=== PATIENT | male | born 1965 | race Caucasian/White ===

== ENCOUNTER → 2016-11-21 | Outpatient (REF) | payer OTHER, MEDICAID ==
[2016-11-21 12:36] LABS: ALBUMIN 3.7 GM/DL (3.2-5.2); ALBUMIN/GLOBULIN RATIO 1.19 (1.00-1.93); ALKALINE PHOSPHATASE 77 U/L (45-117); ALT/SGPT 25 U/L (12-78); ANION GAP 7 MEQ/L (8-16); AST/SGOT 20 U/L (15-37); BILIRUBIN,TOTAL 0.5 MG/DL (0.2-1.0); BLOOD UREA NITROGEN 17 MG/DL (7-18); CALCIUM LEVEL 8.5 MG/DL (8.5-10.1); CARBON DIOXIDE LEVEL 26 MEQ/L (21-32); CHLORIDE LEVEL 108 MEQ/L (98-107); CREATININE FOR GFR 1.14 MG/DL (0.70-1.30); GLOMERULAR FILTRATION RATE > 60.0 (>56); GLUCOSE, FASTING 99 MG/DL (70-105); POTASSIUM SERUM 4.5 MEQ/L (3.5-5.1); SODIUM LEVEL 141 MEQ/L (136-145); TOTAL PROTEIN 6.8 GM/DL (6.4-8.2)
[2016-11-24 00:09] LABS: %CD3+CD4+CD8+ 0.2 % (Not Estab.); %CD3+CD4+CD8- 21.2 % (Not Estab.); %CD3+CD4-CD8+ 45.3 % (Not Estab.); %CD3+CD4-CD8- 2.5 % (Not Estab.); ABS CD3+CD4+CD8+ 2 /uL (Not Estab.); ABS CD3+CD4+CD8- 254 /uL (Not Estab.); ABS CD3+CD4-CD8+ 544 /uL (Not Estab.); ABS CD3+CD4-CD8- 30 /uL (Not Estab.); CD4/CD8 NYSDOH RATIO 0.47 (Not Estab.); Eosinophils 2 % (.); HCT 41.9 % (37.5-51.0); HGB 14.8 g/dL (12.6-17.7); Monocytes 10 % (.); Neutrophils 52 % (.); WBC 3.4 x10E3/uL (3.4-10.8)
== END ==
LOC: M SFHCPLAZ 09:18
PROVIDERS: ATTEND Internal Medicine Infectious Disease
DX: B20 Human immunodeficiency virus [HIV] disease (principal)